=== PATIENT | female | born 1985 | race Caucasian/White ===

== ENCOUNTER 2019-01-06 22:27 | Emergency (ER) | payer SELFPAY ==
--- NOTE | 2019-01-06 22:49 | EDPHYS ---
Physician Documentation [facility] Name: Radha Maguire Age: 33 yrs Sex: Female : 1985 Arrival Date: 01/06/2019 Time: 22:29 Bed 28 Private MD: ED Physician Yandel Rodriguez HPI: 01/06 22:42 This 33 yrs old Female presents to ER via Unassigned with complaints of Foot cp Pain. 22:42 The patient presents with pain, that is chronic. The complaints affect the plantar cp surface of left foot. Context: resulted from stepped on kendrick tack, the patient can fully bear weight, the patient is able to ambulate. Onset: The symptoms/episode began/occurred 3 month(s) ago. Associated signs and symptoms: Pertinent negatives calf tenderness, fever, swelling, warmth. Historical: - Allergies: 22:55 No Known Allergies; ea - Home Meds: 22:55 None [Active]; ea - PMHx: 22:55 None; ea - PSHx: 22:55 None; ea - Immunization history:: Adult Immunizations up to date. - Social history:: Smoking status: Patient uses tobacco products, smokes one-half pack cigarettes per day. - Ebola Screening: : No symptoms or risks identified at this time. ROS: 22:43 Constitutional: Negative for body aches, chills, fever, poor PO intake. cp 22:43 Cardiovascular: Negative for chest pain, palpitations. 22:43 Respiratory: Negative for cough, shortness of breath, wheezing. 22:43 Abdomen/GI: Negative for abdominal pain, nausea, vomiting, and diarrhea. 22:43 Back: Negative for pain at rest, pain with movement. 22:43 MS/extremity: Positive for pain, of the plantar surface of left foot, Negative for deformity, paresthesias. 22:43 Skin: Negative for cellulitis. 22:43 All other systems are negative. Exam: 22:45 Constitutional: The patient appears in no acute distress, alert, awake, non-toxic, well cp developed, well nourished. 22:45 Musculoskeletal/extremity: Extremities: grossly normal except: noted in the plantar surface ball of foot: pain, tenderness, There is no evidence of swelling, erythema, Perfusion: the extremity is normally perfused throughout, Sensation intact. 22:45 Skin: cellulitis, is not appreciated. Vital Signs: 22:45 BP 127 / 60; Pulse 60; Resp 18; Temp 97.6; Pulse Ox 98% on R/A; Weight 63.5 kg; Height ea 5 ft. (152.40 cm); 22:45 Body Mass Index 27.34 (63.50 kg, 152.40 cm) ea MDM: 22:41 Patient medically screened. cp 22:47 Data reviewed: vital signs, nurses notes. cp Administered Medications: No medications were administered Disposition: 23:00 Chart complete. cp 01/07 02:59 Co-signature as Attending Physician, Yandel Rodriguez MD. pkl Disposition: 01/06/19 22:48 Discharged to Home as Medical Screen. Impression: Pain in left foot. - Condition is Stable. - Discharge Instructions: Foot Pain. - Medication Reconciliation Form, Thank You Letter, Antibiotic Education, Prescription Opioid Use form. - Follow up: Private Physician; When: 1 - 2 days; Reason: Recheck today's complaints. - Problem is chronic. - Symptoms are unchanged. Signatures: Yandel Rodriguez MD MD pkl Maynor Marinelli PA PA cp Antunez, Elena RN RN Corrections: (The following items were deleted from the chart) 01/06 22:58 22:48 01/06/2019 22:48 Discharged to Home as Medical Screen. Impression: Pain in left ea foot. Condition is Stable. Forms are Medication Reconciliation Form, Thank You Letter, Antibiotic Education, Prescription Opioid Use. Follow up: Private Physician; When: 1 - 2 days; Reason: Recheck today's complaints. Problem is chronic. Symptoms are unchanged. cp
--- NOTE | 2019-01-06 22:59 | ER ---
Nurse's Notes [facility] Name: Radha Maguire Age: 33 yrs Sex: Female : 1985 Arrival Date: 01/06/2019 Time: 22:29 Bed 28 Private MD: Diagnosis: Pain in left foot Presentation: 01/06 22:45 Presenting complaint: Patient states: Reports she stepped on a jhonny nail three months ea ago states left foot is still hurting. Pt reports her face is numb and it is hard to swallow. Transition of care: patient was not received from another setting of care. Onset of symptoms was January 06, 2019. Risk Assessment: Do you want to hurt yourself or someone else? Patient reports no desire to harm self or others. Initial Sepsis Screen: Does the patient meet any 2 criteria? No. Patient's initial sepsis screen is negative. Does the patient have a suspected source of infection? No. Patient's initial sepsis screen is negative. Care prior to arrival: None. 22:45 Method Of Arrival: Ambulatory ea 22:45 Acuity: PEPE 4 ea Historical: - Allergies: 22:55 No Known Allergies; ea - Home Meds: 22:55 None [Active]; ea - PMHx: 22:55 None; ea - PSHx: 22:55 None; ea - Immunization history:: Adult Immunizations up to date. - Social history:: Smoking status: Patient uses tobacco products, smokes one-half pack cigarettes per day. - Ebola Screening: : No symptoms or risks identified at this time. Screenin:53 Abuse screen: Denies threats or abuse. Nutritional screening: No deficits noted. ea Tuberculosis screening: No symptoms or risk factors identified. Fall Risk None identified. Assessment: 22:50 General: Appears in no apparent distress. Behavior is calm, cooperative, appropriate ea for age. Pain: Complains of pain in left foot. Neuro: Level of Consciousness is awake, alert, obeys commands, Oriented to person, place, time, situation. Respiratory: Airway is patent Respiratory effort is even, unlabored, Respiratory pattern is regular, symmetrical. Derm: Skin is pink, warm \T\ dry. Musculoskeletal: Circulation, motion, and sensation intact. 22:56 Reassessment: Patient and/or family updated on plan of care and expected duration. Pain ea level reassessed. Patient is alert, oriented x 3, equal unlabored respirations, skin warm/dry/pink. Pt declined radiology. Verbalized the understanding of seeking medical treatment if symptoms worsened. Pt med screened. Left ambulatory with significant other, tolerating well. Vital Signs: 22:45 BP 127 / 60; Pulse 60; Resp 18; Temp 97.6; Pulse Ox 98% on R/A; Weight 63.5 kg; Height ea 5 ft. (152.40 cm); 22:45 Body Mass Index 27.34 (63.50 kg, 152.40 cm) ea ED Course: 22:29 Patient arrived in ED. ds1 22:35 Maynor Marinelli PA is PHCP. cp 22:35 Yandel Rodriguez MD is Attending Physician. cp 22:44 Patient has correct armband on for positive identification. Bed in low position. Call ea light in reach. 22:45 Arm band placed on right wrist. Patient placed in an exam room, on a stretcher, on ea pulse oximetry. 22:50 Radha Johnson, RN is Primary Nurse. ea 22:53 Triage completed. ea 22:58 No provider procedures requiring assistance completed. Patient did not have IV access ea during this emergency room visit. Administered Medications: No medications were administered Outcome: 22:48 Discharge ordered by . cp 22:56 Medical screen evaluation completed per provider. Patient declined treatment. ea 22:56 Condition: stable 22:58 Patient left the ED. ea Signatures: Deana Schaffer ds1 Maynor Marinelli PA PA cp Antunez, Elena, RN RN ea
== END 2019-01-06 22:58 | disposition home or self-care (01) ==
LOC: ER 22:27
DX: M79.672 Pain in left foot (principal); F17.210 Nicotine dependence, cigarettes, uncomplicated

== ENCOUNTER 2021-04-20 09:03 | Emergency (ER) | payer SELFPAY ==
--- OUTSIDE RECORDS SUMMARY | 2021-04-20 09:05 | XMS REPORT | Continuity of Care Document ---
:1985 Author Organization [facility] t Address [address] [place] [address] Dr. Dahl [address] [place] [id number] Care Team Providers Name Role Phone NERET Attending Clinician Unavailable NERET Admitting Clinician Unavailable Payers Payer Name Policy Type Policy Number Effective Date Expiration Date S our[place] [id number] 2013 00:00:00 [place] Problems This patient has no known problems. Allergies, Adverse Reactions, Alerts This patient has no known allergies or adverse reactions. Medications This patient has no known medications. Procedures This patient has no known procedures. Encounters Start End Encounter Admission Attending Care Care Encounter Source Date/Time Date/Time Type Type Clinicians Facility Department ID 2020-04-05 2020-04-05 Outpatient [id number] [place] 02:44:00 02:44:00 [id number] Results This patient has no known results.
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
--- NOTE | 2021-04-20 09:17 | ER ---
Nurse's Notes [facility] Name: Radha Maguire Age: 35 yrs Sex: Female : 1985 Arrival Date: 04/20/2021 Time: 09:05 Bed 13 Private MD: Diagnosis: Cellulitis of finger Presentation: 04/20 09:13 Chief complaint: Patient states: Cut L hand 2nd digit on Thanksgiving. Pain, swelling ll1 for 4 days. + drainage when squeezing site, no fever. Coronavirus screen: Vaccine status: Patient reports being unvaccinated. Client denies travel out of the [place] in the last 14 days. At this time, the client does not indicate any symptoms associated with coronavirus-19. Ebola Screen: Patient denies travel to an Ebola-affected area in the 21 days before illness onset. Initial Sepsis Screen: Does the patient meet any 2 criteria? No. Patient's initial sepsis screen is negative. Does the patient have a suspected source of infection? Yes: Skin breakdown/wound. Risk Assessment: Do you want to hurt yourself or someone else? Patient reports no desire to harm self or others. Onset of symptoms was April 10, 2021. 09:13 Method Of Arrival: Ambulatory ll1 09:13 Acuity: PEPE 4 ll1 Triage Assessment: 09:15 General: Appears in no apparent distress. comfortable, Behavior is cooperative, bp appropriate for age, anxious. Pain: Complains of pain in dorsal aspect of middle phalanx of left index finger. EENT: No deficits noted. Neuro: No deficits noted. Cardiovascular: No deficits noted. Respiratory: No deficits noted. GI: No signs and/or symptoms were reported involving the gastrointestinal system. : No signs and/or symptoms were reported regarding the genitourinary system. Derm: No deficits noted. Musculoskeletal: No deficits noted. Injury Description: Laceration sustained to dorsal aspect of middle phalanx of left index finger is superficial, 0.5 to 2.5 cm long, not bleeding. Historical: - Allergies: 09:13 No Known Allergies; ll1 - PMHx: 09:13 None; ll1 - PSHx: 09:13 None; ll1 - Immunization history:: Client reports having NOT received the Covid vaccine. Last tetanus immunization: up to date. - Social history:: Smoking status: Patient reports the use of cigarette tobacco products, smokes two packs cigarettes per day. - Family history:: not pertinent. - Hospitalizations: : No recent hospitalization is reported. Screenin:15 Abuse screen: Denies threats or abuse. Denies injuries from another. Nutritional bp screening: No deficits noted. Tuberculosis screening: No symptoms or risk factors identified. Fall Risk None identified. Assessment: 09:15 General: SEE TRIAGE NOTE. bp 09:27 Reassessment: PT D/C HOME AMBULATORY, DX WITH CELLULITIS. bp Vital Signs: 09:13 BP 142 / 89; Pulse 82; Resp 17; Temp 98.1; Pulse Ox 100% ; Weight 72.57 kg; Height 5 ll1 ft. 0 in. (152.40 cm); Pain 6/10; 09:13 Body Mass Index 31.25 (72.57 kg, 152.40 cm) ll1 ED Course: 09:05 Patient arrived in ED. mr 09:05 Karan Lou MD is Attending Physician. rn 09:13 Arm band placed on Patient placed in an exam room, on a stretcher. ll1 09:15 Triage completed. ll1 09:15 Patient has correct armband on for positive identification. Bed in low position. Call bp light in reach. Side rails up X2. 09:15 Wound care: to laceration located on dorsal aspect of middle phalanx of left index bp finger was cleaned with Hibiclens, dressed with band aid, Patient tolerated well. 09:16 Micheal Brown, RN is Primary Nurse. bp 09:26 No provider procedures requiring assistance completed. Patient did not have IV access bp during this emergency room visit. Administered Medications: No medications were administered Outcome: 09:17 Discharge ordered by . rn 09:26 Discharged to home ambulatory. bp 09:26 Condition: stable 09:26 Discharge instructions given to patient, Instructed on discharge instructions, follow up and referral plans. medication usage, wound care, Demonstrated understanding of instructions, follow-up care, medications, wound care, Prescriptions given X 2. 09:28 Patient left the ED. bp Signatures: Devan Mona mr Karan Lou MD MD rn Peltier, Brian, RN RN bp Lewis, Lynsay, RN RN ll1
[2021-04-20 09:33] VITALS: BP 142/89; TEMP 98.1; O2SAT 100
== END 2021-04-20 09:28 | disposition home or self-care (01) ==
LOC: ER 09:03
DX: L03.012 Cellulitis of left finger (principal); F17.210 Nicotine dependence, cigarettes, uncomplicated
CPT/HCPCS: 99283

== ENCOUNTER 2024-09-04 12:53 | Emergency (ER) | payer BC, SELFPAY ==
--- OUTSIDE RECORDS SUMMARY | 2024-09-04 13:13 | XMS REPORT | Continuity of Care Document ---
Author Name Unknown Address [address] [facility] [address] [place] [address] Organization [facility] [place] Address [address] [facility] [place] [address] Care Team Providers Care Processing Spec Name Role Phone Carla Mohr Primary Care Physician [phone] RAMONE MORA Attending Clinician Unava ilriddhi Burt [facility] Attending Clinician Unava ilable Doctor Unassigned, [place] Attending Clinician U walter [facility] Attending Clinician Unavailable [facility] Attending Clinician Unavailable Ramone Cruz Attending Clinician + Jaswinder Felix CPhT Attending Clinician Unavaila Yoselyn Awan DNP Attending Clinician [phone] Doctor Unassigned, [place] Attending Clinician U MOIRA Go Attending Clinician Unavailable Moira Monroe MD Attending Clinician [phone] Jagdish Herbert MD Attending Clinician [phone] JAGDISH HERBERT Attending Clinician Unavailable [facility] Attending Clinician Unavailmichele braden Tomek_T Attending Clinician Unavailable GC_GCBZW_Nicole_S Attending Clinician Unavaila ANDRE Arevalo Attending Clinician Unavaila ANDRE Arevalo Attending Clinician Unavaila dio RIVERO Attending Clinician Unavailable NERET Attending Clinician Unavailable Tomek_T Admitting Clinician Unavailable GC_GCBZW_Kadiyala_S Admitting Clinician Unavaila ble DESAI_RAKESH Admitting Clinician Unavailable NERET Admitting Clinician Unavailable Payers Payer Name Policy Type Policy Number Effective Date Expirati on Date Source [place] [id number] 2022 00:00:00 2024 00:00:[place] [id number] Problems Condition Name Condition Details Condition Category Status Onset Date Resolution Date Last Treatment Date Treating Clinician Comments Source Hepatitis C antibody positive in blood Hepatitis C antibody positive in blood Disease Active 10-23 00:00: 00 [facility] BMI 33.0-33.9, adult BMI 33.0-33.9, adult Disease Active 06-25 00:00: 00 [facility] Nexplanon insertion Nexplanon insertion Disease Active 06-25 00:00: 00 [facility] UTI (urinary tract infection) UTI (urinary tract infection) Disease Active 09-13 00:00: 00 [facility] General counseling and advice for contracept xochitl management General counseling and advice for contracept xochitl management Disease Active 09-08 00:00: 00 Overview: Formattin g of this note might be different from the original. 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 Utility [facility] Need for Tdap vaccinatio n Need for Tdap vaccinatio n Disease Active 09-08 00:00: 00 [facility] Rubella immune Rubella immune Disease Active 09-08 00:00: 00 [facility] Breast feeding status of mother Breast feeding status of mother Disease Active 09-08 00:00: 00 [facility] Tobacco use disorder Tobacco use disorder Disease Active 09-08 00:00: 00 [facility] Urinary frequency Urinary frequency Disease Active 09-08 00:00: 00 [facility] Acute sinusitis Acute Sinusitis Problem Active [facility] Acute upper respirator y infection Acute Upper Respirator y Infection Problem Active [facility] Nummular eczema Nummular Eczema Problem Active [facility] Eruption Eruption Problem Active [facility] Cough Cough Problem Active [facility] Dysuria Dysuria Problem Active [facility] Allergies, Adverse Reactions, Alerts Allergy Name Allergy Type Status Severity Reaction(s) Onset Date Inactive Date Treating Clinician Comments Source NO KNOWN ALLERGIE S Drug Class Active [facility] Social History Social Habit Start Date Stop Date Quantity Comments Source History of tobacco use Chews Tobacco [facility] Alcoholic beverage intake 2024-03-08 00:00:00 2024-03-08 00:00:00 Current drinker of alcohol (finding) [facility] History of Social function 2023-10-21 00:00:00 2023-10-21 00:00:00 [facility] Exposure to SARS-CoV-2 (event) 2022-06-17 00:00:00 2022-06-27 09:41:00 Not sure [facility] Alcohol intake 2022-06-27 00:00:00 2022-06-27 00:00:00 Current drinker of alcohol (finding) [facility] Tobacco use and exposure 2022-06-25 00:00:00 2022-06-25 00:00:00 User of smokeless tobacco [facility] Cigarettes smoked current (pack per day) - Reported 2022-06-25 00:00:00 2022-06-25 00:00:00 [facility] Cigarette pack-years 2022-06-25 00:00:00 2022-06-25 00:00:00 [facility] Sex assigned at 1985 00:00:00 1985 00:00:00 [facility] Smoking Status Start Date Stop Date Source Heavy Tobacco Smoker [facility] Tobacco smoking consumption unknown [facility] Smokes tobacco daily 2022-06-25 00:00:00 [facility] Medications Ordered Medication Name Filled Medication Name Start Date Stop Date Current Medication? Ordering Clinician Indication Dosage Frequency Signature (SIG) Comments Components Source sofosbuvir- velpatasvir (EPCLUSA) 400-100 mg 2023-05 00:00: 00 Yes [id number] 1{tbl} Take 1 tablet by mouth in the morning. [facility] sofosbuvir- velpatasvir (EPCLUSA) 400-100 mg 02-10 00:00: 00 03-19 00:00 :00 No [id number] 1{tbl} Take 1 tablet by mouth in the morning. [facility] sofosbuvir- velpatasvir (EPCLUSA) 400-100 mg 02-05 00:00: 00 02-10 00:00 :00 No [id number] 1{tbl} Take 1 tablet by mouth in the morning. [facility] glecaprevir -pibrentasv ir 100-40 mg 02-02 00:00: 00 02-05 00:00 :00 No [id number] 3{tbl} Take 3 tablets by mouth in the morning. [facility] glecaprevir -pibrentasv ir 100-40 mg 01-28 00:00: 00 02-02 00:00 :00 No [id number] 3{tbl} Take 3 tablets by mouth in the morning for 56 days. [facility] albuterol 90 mcg/actuati on inhaler 01-04 10:56: 35 Yes INHALE 1 TO 2 PUFFS BY MOUTH EVERY 4 TO 6 HOURS NEEDED DIRECTED [facility] valACYclovi r 1 gram tablet 12-28 00:00: 00 02-08 00:00 :00 No TAKE 2 TABLETS BY MOUTH EVERY 12 HOURS FOR ONE DAY. [facility] acyclovir 200 mg capsule 11-06 00:00: 00 Yes [id number] 800mg Take 4 capsules by mouth 5 (five) times daily. [facility] predniSONE 10 mg tablet 11-06 00:00: 00 02-08 00:00 :00 No [id number] TAKE ONE TABLET DAILY FOR TONGUE SWELLING [facility] etonogestre L (NEXPLANON) 68 mg implant 12 15:24: 22 Yes 68mg 68 mg by Subdermal route once now. [facility] ACYCLOVIR ORAL 12 15:24: 22 Yes Take by mouth. [facility] etonogestre L (NEXPLANON) 68 mg implant 04 17:05: 50 Yes 68mg 68 mg by Subdermal route once now. [facility] ACYCLOVIR ORAL 10-20 17:05: 50 Yes Take by mouth. [facility] valacyclovi r 1 gram tablet 5-31 00:00: 00 Yes 1gram Nirav Gale TAKE 10 ML BY MOUTH EVERY 4 TO 6 HOURS NEEDED 2022-05 00:00: 00 Yes Nirav Gale TAKE 2 TABLETS BY MOUTH FOR 1 DAY THEN TAKE 1 TABLET BY MOUTH EVERY DAY FOR 4 DAYS 2022-05 00:00: 00 Yes Nirav Gale INHALE 1 TO 2 PUFFS BY MOUTH EVERY 4 TO 6 HOURS NEEDED DIRECTED 2022-05 00:00: 00 Yes Nirav Gale AMOXICILLIN 500MG 27 00:00: 00 Yes Nirav Gale TAKE 1 TABLET BY MOUTH THREE TIMES DAILY UNTIL ALL TAKEN 0 -26 00:00: 00 Yes Nirav Gale TAKE 1 CAPSULE BY MOUTH TWICE DAILY UNTIL ALL TAKEN 01-07 00:00: 00 Yes Nirav Gale TAKE 1 CAPSULE BY MOUTH EVERY DAY 16 00:00: 00 Yes Nirav Gale FLUTICASONE 50MCG RX SPR 8-16 00:00: 00 Yes [id number] Nirav Gale USE 2 SPRAYS IN EACH NOSTRIL TWICE DAILY -16 00:00: 00 Yes Nirav Gale USE A CAPFUL TO RINSE YOUR MOUTH TWICE DAILY AFTER BRUSHING TEETH -28 00:00: 00 Yes Nirav Gale AMPH/DEX (A) 10MG ER 3-23 00:00: 00 Yes Nirav Gale etonogestre L (NEXPLANON) implant 68 mg 2-09 17:15: 00 06-27 16:29 :00 No [id number] 68mg [facility] Flagyl 500 mg tablet 10-19 00:00: 00 Yes 1mg Nirav Gale phenazopyri dine 200 mg tablet 12-05 00:00: 00 Yes 200mg Take 1 tablet by mouth 3 (three) times daily. [facility] ondansetron (ZOFRAN ODT) 4 mg disintegrat ing tablet 12-05 00:00: 00 Yes 4mg Take 1 tablet by mouth every 8 (eight) hours as needed for Nausea and Vomiting (N/V). [facility] Strattera 25 mg capsule 11-17 00:00: 00 Yes 1mg Nirav Gale Adderall XR 10 mg capsule,ext ended release Take 1 capsule every day by oral route for 30 days. Adderall XR 10 mg capsule,ext ended release Take 1 capsule every day by oral route for 30 days. No 1capsul e(s) Q1D Adderall XR 10 mg capsule,ex tended release Take 1 capsule every day by oral route for 30 days. [facility] dextroamphe tamine-amph etamine ER 10 mg 24hr capsule,ext end release TAKE 1 CAPSULE BY MOUTH EVERY DAY dextroamphe tamine-amph etamine ER 10 mg 24hr capsule,ext end release TAKE 1 CAPSULE BY MOUTH EVERY DAY No dextroamph etamine-am phetamine ER 10 mg 24hr capsule,ex tend release TAKE 1 CAPSULE BY MOUTH EVERY DAY [facility] Adderall XR 10 mg capsule,ext ended release Take 1 capsule every day by oral route for 30 days. Adderall XR 10 mg capsule,ext ended release Take 1 capsule every day by oral route for 30 days. No 1capsul e(s) Q1D Adderall XR 10 mg capsule,ex tended release Take 1 capsule every day by oral route for 30 days. [facility] azelastine 137 mcg (0.1 %) nasal spray aerosol Surprise 2 sprays twice a day by intranasal route for 30 days. azelastine 137 mcg (0.1 %) nasal spray aerosol Surprise 2 sprays twice a day by intranasal route for 30 days. No 2spray( s) BID azelastine 137 mcg (0.1 %) nasal spray aerosol Surprise 2 sprays twice a day by intranasal route for 30 days. [facility] chlorhexidi ne gluconate 0.12 % mouthwash USE A CAPFUL TO RINSE YOUR MOUTH TWICE DAILY AFTER BRUSHING TEETH chlorhexidi ne gluconate 0.12 % mouthwash USE A CAPFUL TO RINSE YOUR MOUTH TWICE DAILY AFTER BRUSHING TEETH No chlorhexid ine gluconate 0.12 % mouthwash USE A CAPFUL TO RINSE YOUR MOUTH TWICE DAILY AFTER BRUSHING TEETH [facility] dextroamphe tamine-amph etamine ER 10 mg 24hr capsule,ext end release Take 1 capsule every day by oral route for 30 days. dextroamphe tamine-amph etamine ER 10 mg 24hr capsule,ext end release Take 1 capsule every day by oral route for 30 days. No 1capsul e(s) Q1D dextroamph etamine-am phetamine ER 10 mg 24hr capsule,ex tend release Take 1 capsule every day by oral route for 30 days. [facility] Flonase Allergy Relief 50 mcg/actuati on nasal spray,suspe nsion Surprise 1 spray every day by intranasal route for 30 days. Flonase Allergy Relief 50 mcg/actuati on nasal spray,suspe nsion Surprise 1 spray every day by intranasal route for 30 days. No 1spray( s) Q1D Flonase Allergy Relief 50 mcg/actuat ion nasal spray,susp ension Surprise 1 spray every day by intranasal route for 30 days. [facility] Immunizations Ordered Immunization Name Filled Immunization Name Date Status Comments Source TD, NOS 1999-05-19 00:00:00 Completed [facility] TD, NOS 1999-05-19 00:00:00 Completed [facility] TD, NOS 1999-05-19 00:00:00 Completed [facility] TD, NOS Unknown Completed [facility] TD, NOS Unknown Completed [facility] TD, NOS Unknown Completed [facility] TD, NOS Unknown Completed [facility] TD, NOS Unknown Completed [facility] TD, NOS Unknown Completed [facility] TD, NOS Unknown Completed [facility] TD, NOS Unknown Completed [facility] TD, NOS Unknown Completed [facility] TD, NOS Unknown Completed [facility] TD, NOS Unknown Completed [facility] Vital Signs Vital Name Observation Time Observation Value Comments S ource Systolic blood pressure 2024-03-08 14:25:00 109 mm[Hg] [facility] Diastolic blood pressure 2024-03-08 14:25:00 77 mm[Hg] [facility] Heart rate 2024-03-08 14:25:00 77 /min [facility] Body temperature 2024-03-08 14:25:00 36 Guillermina [facility] Respiratory rate 2024-03-08 14:25:00 18 /min [facility] Body height 2024-03-08 14:25:00 152.4 cm [facility] Body weight 2024-03-08 14:25:00 77.747 kg [facility] BMI 2024-03-08 14:25:00 33.47 kg/m2 [facility] Oxygen saturation in Arterial blood by Pulse oximetry 2024-03-08 14:25:00 99 /min [facility] Respiratory rate 2024-01-05 15:54:00 18 /min [facility] Body height 2024-01-05 15:54:00 152.4 cm [facility] Body weight 2024-01-05 15:54:00 77.429 kg [facility] BMI 2024-01-05 15:54:00 33.34 kg/m2 [facility] Oxygen saturation in Arterial blood by Pulse oximetry 2024-01-05 15:54:00 98 /min [facility] Systolic blood pressure 2024-01-05 15:54:00 128 mm[Hg] [facility] Diastolic blood pressure 2024-01-05 15:54:00 88 mm[Hg] [facility] Heart rate 2024-01-05 15:54:00 108 /min [facility] Body temperature 2024-01-05 15:54:00 36.06 Guillermina [facility] Systolic blood pressure 2023-11-08 00:31:00 129 mm[Hg] [facility] Diastolic blood pressure 2023-11-08 00:31:00 82 mm[Hg] [facility] Heart rate 2023-11-08 00:31:00 96 /min [facility] Body temperature 2023-11-08 00:31:00 37.22 Guillermina [facility] Respiratory rate 2023-11-08 00:31:00 18 /min [facility] Body height 2023-11-08 00:31:00 154.9 cm [facility] Body weight 2023-11-08 00:31:00 60.328 kg [facility] BMI 2023-11-08 00:31:00 25.13 kg/m2 [facility] Oxygen saturation in Arterial blood by Pulse oximetry 2023-11-08 00:31:00 100 /min [facility] Systolic blood pressure 2023-10-21 22:15:00 130 mm[Hg] [facility] Diastolic blood pressure 2023-10-21 22:15:00 89 mm[Hg] [facility] Heart rate 2023-10-21 21:50:00 100 /min [facility] Body temperature 2023-10-21 21:50:00 35.83 Guillermina [facility] Respiratory rate 2023-10-21 21:50:00 20 /min [facility] Body height 2023-10-21 21:50:00 152.4 cm [facility] Body weight 2023-10-21 21:50:00 75.921 kg [facility] BMI 2023-10-21 21:50:00 32.69 kg/m2 [facility] BP Systolic 2023-01-01 00:00:00 130 mm[Hg] [facility] BMI (Body Mass Index) 2023-01-01 00:00:00 31.6 kg/m2 [facility] Body Weight 2023-01-01 00:00:00 2592 [oz_av] [facility] Height 2023-01-01 00:00:00 60 [in_i] [facility] BP Diastolic 2023-01-01 00:00:00 88 mm[Hg] [facility] BP Diastolic 2022-08-08 00:00:00 90 mm[Hg] [facility] Height 2022-08-08 00:00:00 60 [in_i] [facility] BMI (Body Mass Index) 2022-08-08 00:00:00 34 kg/m2 [facility] BP Systolic 2022-08-08 00:00:00 125 mm[Hg] [facility] Body Weight 2022-08-08 00:00:00 2788 [oz_av] [facility] BP Diastolic 2022-07-15 00:00:00 82 mm[Hg] [facility] Height 2022-07-15 00:00:00 60 [in_i] [facility] BMI (Body Mass Index) 2022-07-15 00:00:00 33.2 kg/m2 [facility] BP Systolic 2022-07-15 00:00:00 124 mm[Hg] [facility] Body Weight 2022-07-15 00:00:00 2720 [oz_av] [facility] BP Diastolic 2022-06-28 00:00:00 77 mm[Hg] [facility] Height 2022-06-28 00:00:00 60 [in_i] [facility] BMI (Body Mass Index) 2022-06-28 00:00:00 33.2 kg/m2 [facility] BP Systolic 2022-06-28 00:00:00 117 mm[Hg] [facility] Body Weight 2022-06-28 00:00:00 2723 [oz_av] [facility] Systolic blood pressure 2022-06-27 16:09:00 125 mm[Hg] [facility] Diastolic blood pressure 2022-06-27 16:09:00 84 mm[Hg] [facility] Heart rate 2022-06-27 16:09:00 73 /min [facility] Respiratory rate 2022-06-27 16:09:00 18 /min [facility] Body height 2022-06-27 16:09:00 152.4 cm [facility] Body weight 2022-06-27 16:09:00 78.472 kg [facility] BMI 2022-06-27 16:09:00 33.79 kg/m2 [facility] Systolic blood pressure 2022-06-25 22:04:00 118 mm[Hg] [facility] Diastolic blood pressure 2022-06-25 22:04:00 78 mm[Hg] [facility] Heart rate 2022-06-25 22:04:00 72 /min [facility] Body temperature 2022-06-25 22:04:00 36.72 Guillermina [facility] Respiratory rate 2022-06-25 22:04:00 18 /min [facility] Body height 2022-06-25 22:04:00 152.4 cm [facility] Body weight 2022-06-25 22:04:00 78.472 kg [facility] BMI 2022-06-25 22:04:00 33.79 kg/m2 [facility] Respiratory Rate 2023-10-17 14:04:00 18.00 /min Nirav F Baljinder BP Systolic 2023-10-17 14:04:00 123 mm[Hg] Step hen F Baljinder BP Diastolic 2023-10-17 14:04:00 86 mm[Hg] Madan phen F Baljinder Weight Measured 2023-10-17 14:04:00 172.60 pounds Nirav F Baljinder Height Measured 2023-10-17 14:04:00 62.40 inches [facility]irav [facility] [place] Body Temperature 2023-10-17 14:04:00 98.10 degrees Nirav F Baljinder Heart Rate 2023-10-17 14:04:00 90.00 /min Maame en F Baljinder BP Systolic 2023-04-11 08:51:00 125 mm[Hg] Step hen F Baljinder BP Diastolic 2023-04-11 08:51:00 81 mm[Hg] Madan phen F Baljinder Weight Measured 2023-04-11 08:51:00 162.00 pounds Nirav F Baljinder Height Measured 2023-04-11 08:51:00 62.40 inches Nirav F Balj[facility] Body Temperature 2023-04-11 08:51:00 98.20 degrees Nirav F Baljinder Heart Rate 2023-04-11 08:51:00 93.00 /min Maame en F Baljinder Respiratory Rate 2023-04-11 08:51:00 18.00 /min Nirav F Baljinder BP Systolic 2020-11-03 09:27:00 117 mm[Hg] Step hen F Baljinder BP Diastolic 2020-11-03 09:27:00 77 mm[Hg] Madan phen F Baljinder Weight Measured 2020-11-03 09:27:00 160.20 pounds Nirav F Baljinder Height Measured 2020-11-03 09:27:00 62.40 inches Nirav F Baljinder Body Temperature 2020-11-03 09:27:00 98.00 degrees Nirav F Baljinder Heart Rate 2020-11-03 09:27:00 76.00 /min Maame en F Baljinder Respiratory Rate 2020-11-03 09:27:00 17.00 /min Nirav F Baljinder BP Systolic 2020-10-18 11:53:00 110 mm[Hg] Step hen F Baljinder BP Diastolic 2020-10-18 11:53:00 71 mm[Hg] Madan phen F Baljinder Weight Measured 2020-10-18 11:53:00 156.80 pounds Nirav F Baljinder Height Measured 2020-10-18 11:53:00 62.40 inches Nirav F Baljinder Body Temperature 2020-10-18 11:53:00 98.20 degrees Nirav F Baljinder Heart Rate 2020-10-18 11:53:00 81.00 /min Maame en F Baljinder Respiratory Rate 2020-10-18 11:53:00 17.00 /min Nirav F Baljinder BP Systolic 2017-12-08 11:42:00 128 mm[Hg] Step hen F Baljinder BP Diastolic 2017-12-08 11:42:00 92 mm[Hg] Madan phen F Baljinder Weight Measured 2017-12-08 11:42:00 135.20 pounds Nirav F Baljinder Height Measured 2017-12-08 11:42:00 60.00 inches Nirav F Baljinder Body Temperature 2017-12-08 11:42:00 98.10 degrees Nirav F Baljinder Heart Rate 2017-12-08 11:42:00 92.00 /min Maame en F Baljinder Respiratory Rate 2017-12-08 11:42:00 18.00 /min Nirav Gale BP Systolic 2017-11-17 10:52:00 103 mm[Hg] Mike Gale BP Diastolic 2017-11-17 10:52:00 76 mm[Hg] Madan Gale Weight Measured 2017-11-17 10:52:00 137.40 pounds Nirav Gale Height Measured 2017-11-17 10:52:00 60.00 inches Nirav Gale Body Temperature 2017-11-17 10:52:00 97.90 degrees Nirav Gale Heart Rate 2017-11-17 10:52:00 82.00 /min Maame en Robin Gale Respiratory Rate 2017-11-17 10:52:00 20.00 /min Nirav Gale Procedures Procedure Date / Time Performed Performing Clinician Source US ABDOMEN LIMITED WITH DOPPLER 2024-01-16 17:23:37 Ramone Mora [facility] URINE CULTURE 2023-10-21 22:33:00 Yoselyn Louis [facility] GC & CHLAMYDIA AMPLIFIED ASSAY 2023-10-21 22:33:00 Yoselyn Louis [facility] HIGH RISK HPV-THIN PREP 2023-10-21 22:33:00 Yoselyn Louis [facility] TRICHOMONAS AMPLIFIED ASSAY 2023-10-21 22:33:00 Yoselyn Louis [facility] PAP SMEAR-LIQUID BASED-CP 2023-10-21 22:33:00 Yoselyn Louis [facility] ASSIGNMENT OF BENEFITS 2022-06-25 21:18:56 Docto r Unassigned, Tetherow [facility] Encounters Start Date/Time End Date/Time Encounter Type Admission Type Attending Clinicians Care Facility Care Department Encounter ID Source 2024-03-22 00:00:00 2024-03-25 09:16:14 Patient Outreach Criselda Burt Marissa R [facility] [id number] [facility] 2024-02-13 00:00:00 2024-03-20 18:24:29 Patient Secure Msg Doctor Unassigned, [place]ethe[place] Doctor Unassigned, Tetherow [facility] [id number] [id number] [id number] [facility] 2024-03-18 00:00:00 2024-03-18 14:58:05 Telephone Jesusita [facility] [id number] [id number] [facility] 2024-03-08 12:30:00 2024-03-08 12:45:00 Front End Engineer Visit [facility] Ramone Mora [facility] [id number] [facility] 2024-03-08 09:00:00 2024-03-08 09:30:00 Office Visit Ramone Mora [facility] ([facility]) [id number] [id number] [id number] [id number] [facility] 2024-03-08 09:00:00 2024-03-08 09:00:00 Outpatient R RAMONE MORA [facility] [id number] [facility] 2024-02-13 00:00:00 2024-02-13 12:43:19 Specialty Pharmacy Jaswinder Felix Jason [facility] [id number] [id number] [id number] [facility] 2024-02-09 00:00:00 2024-02-09 08:46:19 Telephone Jesusita Milton Alana [facility] [id number] [id number] [id number] [facility] 2024-02-05 00:00:00 2024-02-05 10:53:46 Telephone Jaswinder Felix Jason [facility] [id number] [id number] [id number] [id number] [facility] 2024-01-29 00:00:00 2024-01-30 08:45:05 Telephone Ramone Mora [facility] ([facility]) [id number] [facility] 2024-01-16 11:25:41 2024-01-16 23:59:00 Outpatient RAMONE ROJO [facility] [id number] [facility] 2024-01-16 11:25:41 2024-01-16 23:59:00 Hospital Encounter Ramone Mora [facility] [id number] [facility] 2024-01-15 00:00:00 2024-01-15 00:00:00 Outpatient RAMONE ROJO [facility] [id number] [facility] 2024-01-05 14:15:00 2024-01-05 14:30:00 Front End Engineer Visit [facility] Ramone Mora [facility] 1.2.840.114 350.1.13.10 4.2.7.2.686 [id number] [facility] 2024-01-05 14:15:00 2024-01-05 14:15:00 Outpatient RAMONE ROJO [facility] [id number] [facility] 2024-01-05 10:30:00 2024-01-05 11:00:00 Office Visit Ramone Mora Love [facility] 1.20.114 350.1.13.10 4.2.7.2.686 [id number] [facility] 2023-10-22 00:00:00 2023-11-30 17:39:11 Telephone Yoselyn Louis [facility] 1..114 350.1.13.10 4.2.7.2.686 [id number] [facility] 2023-10-24 00:00:00 2023-11-29 18:22:49 Patient Secure Msg Doctor Unassigned, [place] [facility] 1.0.114 350.1.13.10 4.2.7.2.686 [id number] [facility] 2023-11-07 19:34:00 2023-11-07 20:52:00 Emergency X MOIRA MONROE [facility] ERT [id number] [facility] 2023-11-07 19:34:00 2023-11-07 20:52:00 Emergency Moira Monroe S [facility] 1..114 350.1.13.10 4.2.7.2.686 [id number] [facility] 2023-11-07 16:30:00 2023-11-07 16:30:00 Outpatient R YOSELYN [facility] [id number] [facility] 2023-11-07 00:00:00 2023-11-07 15:47:40 Telephone Yoselyn Louis [facility] 1.284.114 350.1.13.10 4.2.7.2.686 [id number] [facility] 2023-11-07 00:00:00 2023-11-07 14:39:20 Telephone Keon Jagdish [facility] 1.2.840.114 350.1.13.10 4.2.7.2.686 [id number] [facility] 2023-11-07 14:00:00 2023-11-07 14:00:00 Outpatient JAGDISH SALCEDO ELISHA [facility] [id number] [facility] 2023-10-22 00:00:00 2023-10-30 08:58:02 Letter (Out) ArjunYoselyn callahan [facility] 1.2.840.114 350.1.13.10 4.2.7.2.686 [id number] [facility] 2023-10-24 00:00:00 2023-10-24 12:56:54 Case Management ChidiYoselyn nava [facility] 1.2.840.114 350.1.13.10 4.2.7.2.686 [id number] [facility] 2023-10-22 11:30:00 2023-10-22 11:45:00 Front End Engineer Visit Pob, Adc Lab Main Yoselyn Louis [facility] 1.2.840.114 350.1.13.10 4.2.7.2.686 [id number] [facility] 2023-10-22 11:30:00 2023-10-22 11:30:00 Outpatient R YOSELYN [facility] [id number] [facility] 2023-10-22 11:30:00 2023-10-22 11:30:00 Outpatient R YOSELYN [facility] [id number] [facility] 2023-10-21 16:30:00 2023-10-21 17:34:03 Outpatient R YOSELYN [facility] [id number] [facility] 2023-10-21 16:30:00 2023-10-21 17:34:03 Office Visit Yoselyn Louis [facility] 1.2.840.114 350.1.13.10 4.2.7.2.686 [id number] [facility] 2023-10-21 16:30:00 2023-10-21 17:34:03 Outpatient R YOSELYN [facility] [id number] [facility] 2023-10-17 13:54:23 2023-10-17 13:54:23 Outpatient SFA [facility] [id number] Nirav Gale 2023-10-17 00:00:00 2023-10-17 00:00:00 Outpatient Visit [facility] [id number] Nirav Gale 2023-08-12 00:00:00 2023-08-12 00:00:00 Outpatient Tomek_T MMG MMG [id number] [facility] 2023-04-11 08:40:08 2023-04-11 08:40:08 Outpatient SFA [facility] [id number] Nirav Gale 2023-03-18 00:00:00 2023-03-18 00:00:00 Outpatient GC_GCBZW_Ka diyala_S PRIV PRIV [id number] [facility] 2023-03-17 00:00:00 2023-03-17 00:00:00 Outpatient GC_GCBZW_Ka diyala_S PRIV PRIV [id number] [facility] 2023-01-10 00:00:00 2023-01-10 00:00:00 Outpatient Tomek_T MMG MMG [id number] [facility] 2023-01-10 00:00:00 2023-01-10 00:00:00 Outpatient Tomek_T MMG MMG [id number] [facility] 2023-01-01 00:00:00 2023-01-01 00:00:00 Outpatient Tomek_T MMG [facility] [id number] [facility] 2023-01-01 00:00:00 2023-01-01 00:00:00 Rome Watkins MD: [address], [address], [place] [address] , Ph. MMG [facility] [id number] [facility] 2022-08-08 00:00:00 2022-08-08 00:00:00 Outpatient Tomek_T MMG [employer] [id number] [facility] 2022-08-08 00:00:00 2022-08-08 00:00:00 Rome Watkins MD: [address], [address], [place] [address] , Ph. MMG [facility] [id number] [facility] 2022-07-15 00:00:00 2022-07-15 00:00:00 Outpatient Tomek_T MMG [employer] [employer] [id number] [facility] 2022-07-15 00:00:00 2022-07-15 00:00:00 Rome Watkins MD: [address], [address], [place] [address] , Ph. MMG [facility] [id number] [facility] 2022-06-28 00:00:00 2022-06-28 00:00:00 Outpatient Tomek_T MMG [employer] [id number] [facility] 2022-06-28 00:00:00 2022-06-28 00:00:00 Rome Watkins MD: [address], [address], [place] [address] , Ph. MMG [facility] [id number] [facility] 2022-06-27 10:45:00 2022-06-27 10:45:00 [facility] 1.2.840.114 350.1.13.10 4.2.7.2.686 [id number] [facility] 2022-06-27 10:45:00 2022-06-27 10:08:55 Outpatient R ANDRE KIDD [facility] [id number] [facility] 2022-06-26 00:00:00 2022-06-26 00:00:00 Outpatient Tomek_T MMG [employer] [id number] [facility] 2022-06-25 15:30:00 2022-06-25 16:21:08 Outpatient R ANDRE KIDD [facility] [id number] [facility] 2022-06-25 15:30:00 2022-06-25 16:21:08 [facility] 1.2.840.114 350.1.13.10 4.2.7.2.686 [id number] [facility] 2022-06-25 00:00:00 2022-06-25 00:00:00 Orders Only Doctor Unassigned, Tetherow [facility] 1.2.840.114 350.1.13.10 4.2.7.2.686 [id number] [facility] 2022-05-09 00:00:00 2022-05-09 00:00:00 Outpatient DESAI_RAKES H [facility] [id number] [facility] 2021-09-26 10:47:00 2021-09-26 10:47:00 Outpatient DESAI_RAKES H [facility] [id number] [facility] 2020-04-05 02:44:00 2020-04-05 02:44:00 Outpatient [facility] [id number] [facility] 2020-04-05 00:00:00 2020-04-05 00:00:00 Outpatient [facility] [id number] [facility] Results Test Description Test Time Test Comments Results Resul t Comments Source US ABDOMEN LIMITED WITH DOPPLER 2023-12-20 0 18:14:17 EXAM: US ABDOMEN LIMITED WITH DOPPLER HISTORY: HCV infection COMPARISON: None FINDINGS: The gallbladder is contracted. No gallstones, gallbladder wall thickeningor pericholecystic fluid. The net front end developer reports a negative sonographicMurphy's sign. The common bile duct measures 2.4 mm. There is nointrahepatic biliary dilatation. The liver measures 16.1 cm in length and has a normal sonographicappearance . No focal hepatic lesion is seen. The spleen measures 9.7 cm inlength and has a normal sonographic appearance. There is normal hepatopedalflow in the main portal vein. Limited images of the pancreas and aorta demonstrate no gross abnormality. [facility] CT/NG, NAAT, [id number] 00:00:00* Test Item Value Reference Range Interpretation Comme nts CHLAMYDIA, NAAT, URINE (test code = 74112) NEGATIVE GONORRHEA, NAAT, URINE (test code = 08705) NEGATIVE Nirav Kelly BaljinderCT/NG, NAAT, [id number] 13:53:15* Test Item Value Reference Range Interpretation Comme nts CHLAMYDIA, NAAT, URINE (test code = 18511) NEGATIVE NEGATIVE Testing is perfo rmed with Godwin JESUS 6800/8800 systems usingreal-time polymerase chain reaction (PCR) method. A negative result does not exclude low level infection, specimensampling error, or collection error. GONORRHEA, NAAT, URINE (test code = 89189) NEGATIVE NEGATIVE Testing is perfo rmed with Godwin JESUS 6800/8800 systems usingreal-time polymerase chain reaction (PCR) method. A negative result does not exclude low level infection, specimensampling error, or collection error. CT/NG, TMA, [id number] 00:00:00* Test Item Value Reference Range Interpretation Comme nts CHLAMYDIA, NAAT, URINE (test code = 06380) NEGATIVE GONORRHEA, NAAT, URINE (test code = 25554) NEGATIVE Nirav [id number] 09:08:10* Test Item Value Reference Range Interpretation Comme nts RPR RESULT (test code = 3501) NON-REACTIVE NON-REACTIVE RPR TITER (test code = 3500) NOT INDIC. TITER NOT INDIC. [id number] 00:00:00* Test Item Value Reference Range Interpretation Comme nts RPR RESULT (test code = 3501) NON-REACTIVE RPR TITER (test code = 3500) NOT INDIC. TITER Nirav GaleVAGINAL PATHOGENS DNA [id number] 09:35:46* Test Item Value Reference Range Interpretation Comme nts OLIVIA SPECIES (test code = ) NEGATIVE NEGATIVE G. VAGINALIS (test code = 97836) NEGATIVE NEGATIVE T. VAGINALIS (test code = 49172) NEGATIVE NEGATIVE Note: The [employer] VPIII Microbial Identification Testis a DNA probe test intended for use in the detectionand identification of Olivia species, Gardnerellavaginalis and Trichomonas vaginalis nucleic acid. UNLESS OTHERWISE INDICATED, ALL TESTING PERFORMED AT [facility] [address] [place] [address] PEDIATRIC SURGEON: BELEN CALDERÓN M.D. CLIA NUMBER [id number] [facility] [place]. [id number] HIV 1/2 4TH GEN, RFLX [id number] 07:19:53* Test Item Value Reference Range Interpretation Comme nts HIV 1/2 4TH GEN, RFLX CONF ( test code = 3514) NON-REACTIVE NON-REACTIVE HIV 1/2 4TH GEN, RFLX [id number] 00:00:00* Test Item Value Reference Range Interpretation Comme nts HIV 1/2 4TH GEN, RFLX CONF ( test code = 3514) NON-REACTIVE Nirav GaleVAGINAL PATHOGENS DNA PANEL [ADDED]2023-04-12 00:00:00* Test Item Value Reference Range Interpretation Comme nts OLIVIA SPECIES (test code = 00667) NEGATIVE G. VAGINALIS (test code = 24377) NEGATIVE T. VAGINALIS (test code = 64653) NEGATIVE Nirav GaleGC AND CHLAMYDIA AMPLIFIED, [id number] 00:00:00* Test Item Value Reference Range Interpretation Comme nts GONORRHEA, TMA (test code = 44156) NEGATIVE CHLAMYDIA, TMA (test code = 74082) NEGATIVE Nirav GalePAP TEST, THINPREP, [id number] 00:00:00* Test Item Value Reference Range Interpretation Comme nts SOURCE: (test code = 8001) Cervical/Endocervical SLIDES: (test code = 8011) 1 LMP: (test code = 8021) 10/05/2020 SPECIMEN ADEQUACY: (test code = 67474) (NOTE) INTERPRETATION: (test code = 00526) NILM/NO EPITH. ABNORMALITY;SEE BELOW FUNDRAISING COORDINATOR: (test code = 8101) CHRISSY Josue(ASCP) LOCATION: (test code = 09517) (NOTE) CPT: (test code = 8140) (NOTE) Nirav Kelly [id number] 00:00:00* Test Item Value Reference Range Interpretation Comme nts RPR RESULT (test code = 3501) NON-REACTIVE RPR TITER (test code = 3500) NOT INDIC. TITER Nirav GaleHPV HIGH RISK WITH GENOTYPE, [id number] 00:00:00* Test Item Value Reference Range Interpretation Comme nts HPV HIGH RISK INTERP (test c ode = 71580) NEGATIVE HPV 16 (test code = 51287) NEGATIVE HPV 18 (test code = 86175) NEGATIVE HPV, HR, OTHER GENOTYPES (te st code = 16318) NEGATIVE Nirav GaleVAGINAL PATHOGENS DNA [id number] 00:00:00* Test Item Value Reference Range Interpretation Comme nts OLIVIA SPECIES (test code = 91732) NEGATIVE G. VAGINALIS (test code = 79198) POSITIVE T. VAGINALIS (test code = 87821) NEGATIVE Nirav Kelly BaljinderHIV AB/AG COMBO RFLX [id number] 00:00:00* Test Item Value Reference Range Interpretation Comme nts HIV 1/2 4TH GEN, RFLX CONF ( test code = 3514) NON-REACTIVE Nirav Kelly Baljinder Notes Date/Time Note Provider Source 2024-03-19 10:36:08 Addended by: JESUSITA MILTON RPH on: 03/19/2024 10:36 AM Modules accepted: Orders T [facility] 2024-03-18 14:56:47 Called patient to follow-up regarding insurance. No answer. Unable to LVM. Edit 03/19: Spoke with patient who confirmed with her job that insurance lapse 24 hrs after termination. Patient does not have insurance and unsure of how to obtain new insurance. Placed referral to social work. Sent new script for Epclusa to [facility] to enroll her in PAP. Informed her to be on the lookout for a text from [facility] to start application. She confirms understanding. Edit 03/24: Attempted to follow up with patient to remind her to send in income documents for PAP application. No answer, unable to leave VM. Edit 03/26: Attempted to follow up with patient to remind her to send in income documents for PAP application. No answer, unable to leave VM. Edit 03/31: Attempted to follow up with patient to remind her to send in income documents for PAP application. No answer, unable to leave VM. SA Milton [facility] 2024-03-08 12:30:00 Images from the original note were not included. Venipuncture collection performed by clean technique on the right anticubitus. Total of 1 attempts were made. Slight pressure and a bandage/dressing were applied to the site(s). The patient experienced no complications. The following specimens were processed according to instructions and sent to [facility] laboratories per lab order on 03/08/2024 : LT BLUE SST 1 RED LAV 1 PPT 1 DK GREEN (LiHep) DK GREEN (SodH) HERNANDES DK BLUE (K2) DK BLUE (S) ACD Blood Culture NIPT/NTD [facility] 2024-02-11 10:22:13 Addended by: JESUSITA MILTON RPH on: 02/11/2024 10:22 AM Modules accepted: Orders T Jesusita Milton [facility] 2024-02-09 08:43:21 Initial Assessment: Hepatitis C Virus Treatment DATE: 02/09/24 Emilee Guevara is a 38 year old y/o /White female referred to PharmD by Ramone Mora NP for medication management. Summary of Visit Ms. Guevara is doing well today. Counseled on Epclusa. Patient is HCV positive, treatment naive, genotype 1A, and non-cirrhotic. HBV/HIV negative. Fibrometer score F1. Viral load 89,161 on 01/05/24. No drug-drug interactions identified. Pending insurance approval to determine preferred pharmacy. Edit 02/23: Insurance mandated prescription to [facility], provided info to patient on 02/12 via [employer] (unread as of 02/23). Attempted to follow-up with patient to verify if she has received/started therapy. No answer, unable to leave voicemail. Patient returned call. Emailed her info on how to obtain medication. Edit 03/04: Spoke with patient on 03/03, states she still hasn't received therapy. Patient expresses extreme frustration with [facility]. Spoke with Tia from [facility] today. States that patient placed order for Epclusa on 02/26 and [facility] ([address], [place], [place]) today. Asked for tracking number ([id number]). Provided information to patient. Asked her to call back if any issues or when she starts therapy. Edit 03/08: Spoke with patient who states that when [facility] called [facility] they state they do not have package. Per UPS tracking, package was delivered on 03/04. Called [facility] on [address] and confirmed they had prescription for patient. Patient was on the way to appointment with Ramone, so informed Ramone of status. Edit 03/11: Verified start date. Pt notes recently laid off so inquiring about coverage for the remaining treatment. Asked her to verify when the end of her insurance coverage is and inform clinical pharmacist, as that will guide next steps. She confirms understanding. Start date: 03/08/24 Anticipated end date: 05/30/24 Indication / Regimen The regimen of Epclusa 1 tablet(s) by mouth once daily for 12 weeks is appropriate for Emilee Guevara who has hepatitis C, genotype 1a, is treatment naive and non-cirrhotic. No renal or hepatic adjustments are required for this hepatitis C regimen. At this time there is no planned dose titration. The patient has the ability to self-administer medication Therapeutic Goal: Achieve sustained virologic response (SVR) following completion of HCV therapy. The HCV PCR lab should be drawn 12 weeks after completion of HCV therapy. Baseline characteristics: Liver Staging: The patient's hepatic fibrosis staging was assessed. The most recent assessment was 01/05/24 which showed fibrometer score of F1 (mild/minimal scarring). Past Medical History: Past Medical History: Diagnosis Date ADHD Herpes simplex type 1 infection STD (sexually transmitted disease) Labs and Diagnostic tests: WBC x10 3 (/uL) Date Value 09/08/2013 11.4 (H) WBC (10*3/?L) Date Value 01/05/2024 10.31 RBC x10 6 (/uL) Date Value 09/08/2013 4.60 RBC (10*6/?L) Date Value 01/05/2024 5.06 HGB Date Value 01/05/2024 15.5 g/dL (H) 09/08/2013 13.0 G/DL HCT (%) Date Value 01/05/2024 47.4 (H) 09/08/2013 40.8 NA (mmol/L) Date Value 01/05/2024 140 K (mmol/L) Date Value 01/05/2024 3.8 CL (mmol/L) Date Value 01/05/2024 105 BUN (mg/dL) Date Value 01/05/2024 6 (L) CREATININE (mg/dL) Date Value 01/05/2024 0.68 TOTAL BILI (mg/dL) Date Value 01/05/2024 0.5 BILI CONJ (mg/dL) Date Value 01/05/2024 0.0 BILI UNCON (mg/dL) Date Value 01/05/2024 0.1 T PROTEIN (g/dL) Date Value 01/05/2024 8.5 (H) ALBUMIN (g/dL) Date Value 01/05/2024 5.0 ALK PHOS (U/L) Date Value 01/05/2024 60 ALTv (U/L) Date Value 01/05/2024 40 (H) AST(SGOT) (U/L) Date Value 01/05/2024 39 Hepatitis C: Genotype: 1A Treatment status: naive Fibrosis score: F1 Hep C VL: 89,161 (01/05/24) Hepatitis B screening: HBsAg (no units) Date Value 10/22/2023 Negative HBsAg Semi-Quantitative (no units) Date Value 10/22/2023 0.11 No results found for: "HBA" HIV Screening HIV 1/2 Ag-Ab with Reflex (no units) Date Value 10/22/2023 Negative Weight: Wt Readings from Last 1 Encounters: 01/05/24 77.4 kg (170 lb 11.2 oz) Allergies: No Known Allergies Immunizations: Immunization History Administered Date(s) Administered TD, NOS 05/19/1999 Vaccination history was reviewed. The patient will be reminded about the importance of completing hepatitis B vaccination if not immune and receiving an annual influenza vaccine as indicated. Medication Reconciliation: Medication reconciliation is based on the patient's most recent med list in the electronic medical record (EMR) including herbal products and OTC medications. The patients' medication list will be updated during patient education, after speaking with the patient and prior to dispensing the medication. Prior to Admission medications Medication Sig Start Date End Date Taking? Authorizing Provider sofosbuvir-velpatasvir (EPCLUSA) 400-100 mg Take 1 tablet by mouth in the morning. 02/06/24 Ramone Mora FNP albuterol 90 mcg/actuation inhaler INHALE 1 TO 2 PUFFS BY MOUTH EVERY 4 TO 6 HOURS NEEDED DIRECTED Doctor Unassigned, [place] acyclovir 200 mg capsule Take 4 capsules by mouth 5 (five) times daily. 11/07/23 Moira Monroe MD dextroamphetamine/amphetamine (ADDERALL ORAL) Take by mouth. Doctor Unassigned, [place] etonogestreL (NEXPLANON) 68 mg implant 68 mg by Subdermal route once now. Doctor Unassigned, [place] ondansetron (ZOFRAN ODT) 4 mg disintegrating tablet Take 1 tablet by mouth every 8 (eight) hours as needed for Nausea and Vomiting (N/V). 12/05/17 Jae Elizabeth III, PA phenazopyridine 200 mg tablet Take 1 tablet by mouth 3 (three) times daily. 12/05/17 Jae Elizabeth III, PA Drug Interactions: There are no significant drug-drug interactions Drug-Food Interactions There are no significant drug-food interactions. This medication should be taken with or without food. Safety Precautions: Hepatitis B reactivation risk: low status: female - of childbearing potential (not currently ) No components found for: "HCG" Risk Evaluation and Mitigation Strategy (REMS) Assessment: No REMS is required for this medication. Contraindications: Emilee Guevara has no contraindications to this medication. Follow up Plan: Initial therapy assessment has been completed and the patient will be contacted and educated on their regimen. Following education the patient will be reassessed 1 month after starting therapy. Jesusita Milton PharmD Clinical Pharmacist - GI/Hepatology [phone] Jesusita Milton [facility] 2024-02-09 08:35:27 Patient Education: Hepatitis C Therapy DATE: 02/09/24 Emilee Guevara is a 38 year old y/o /White female referred to PharmD by Ramone Mora NP for medication counseling. Regimen: I spoke with Emilee Guevara today to notify them that Epclusa for 12 weeks has been approved via insurance, and they are ready to begin therapy for hepatitis C. Medication Administration: Emilee Guevara was educated to take Epclusa. The patient was counseled on the medication name (brand and generic), dose, route, frequency, duration, medication class, and indication. The patient was educated on common side effects including fatigue and headache. The patient was instructed that they can take acetaminophen for a headache, no more than 2,000 mg per 24 hours. The patient was instructed to take the medication at the same time every day. The patient was educated not to miss any doses, interrupt therapy and/or stop taking the medication without talking to the hepatology team. The importance of adherence was discussed. The patient's ability to be adherent with the treatment plan was discussed and the patient was provided with tools and resources to promote adherence to therapy. The patient's ability to self-administer medication was assessed. Appropriate safe handling, storage and disposal directions were reviewed with the patient. Safety Precautions: Contraindications: Emilee Guevara has no contraindications to this medication. The patient was instructed to seek medical attention immediately if they experience signs of an allergic reaction, including but not limited to: a rash; hives; itching; red, swollen, blistered, or peeling skin with or without fever. status was assessed and determined to be: female - of childbearing potential (not currently ). Medication Reconciliation: A medication history and reconciliation were performed (including prescription medications, supplements, over the counter, and herbal products). The medication list was updated and the patients' current medication list is included below. Prior to Admission medications Medication Sig Start Date End Date Taking? Authorizing Provider sofosbuvir-velpatasvir (EPCLUSA) 400-100 mg Take 1 tablet by mouth in the morning. 02/06/24 Ramone Mora FNP albuterol 90 mcg/actuation inhaler INHALE 1 TO 2 PUFFS BY MOUTH EVERY 4 TO 6 HOURS NEEDED DIRECTED Doctor Unassigned, [place] acyclovir 200 mg capsule Take 4 capsules by mouth 5 (five) times daily. 11/07/23 Moira Monroe MD dextroamphetamine/amphetamine (ADDERALL ORAL) Take by mouth. Doctor Unassigned, [place] etonogestreL (NEXPLANON) 68 mg implant 68 mg by Subdermal route once now. Doctor Unassigned, [place] ondansetron (ZOFRAN ODT) 4 mg disintegrating tablet Take 1 tablet by mouth every 8 (eight) hours as needed for Nausea and Vomiting (N/V). 12/05/17 Jae Elizabeth III, PA phenazopyridine 200 mg tablet Take 1 tablet by mouth 3 (three) times daily. 12/05/17 Jae Elizabeth III, PA The patient was instructed to speak with their health care provider before starting any new drug, including prescription or over the counter, natural / herbal products, or vitamins. The patient was educated not to start any antacids while on hepatitis C treatment including omeprazole, famotidine, magnesium, and calcium containing agents before consulting with biomedical electronics technician or hepatology clinical pharmacist. Drug-drug and drug-food interactions with the new therapy were assessed and reviewed with the patient. Appropriate recommended vaccinations were reviewed and discussed with the patient. Pharmacy Information: The patient was notified that their medication will be filled at [facility]. The patient was instructed to notify their clinic nurse coordinator by phone at [phone] when they receive their medication to coordinate a start date. The patient was educated on the refill process. Follow Up: The monitoring and follow-up plan was discussed with the patient. The patient was instructed to contact their health care provider if their symptoms or health problems do not get better or if they become worse. Emilee Guevara denies having any questions at this time. The patient was encouraged to call the hepatology pharmacist at [phone] with any questions. The patient will be contacted within 21 days after initiation of therapy for a complete medication assessment. Jesusita Milton PharmD Clinical Pharmacist - GI/Hepatology [phone] [facility] 2024-02-06 10:35:59 Addended by: RAMONE CRUZ on: 02/06/2024 10:35 AM Modules accepted: Orders [facility] 2024-02-06 10:26:14 HCV infection Assessment: Diagnosis: HCV, dx 10/22/2023 Viral load: 355,130 Genotype: 1A Transmission: Unclear? Possible blood transfusion in the 80s? History of treatment: Treatment naive Liver fibrosis stage: Metavir class F1 Renal function: Stable Coinfection: -HIV: negative -HBV coinfection: negative History of liver disease/decompensation: No ascites, jaundice, change in his mentation, or GI bleedingiver disease/decompensation: No ascites, jaundice, change in his mentation, or GI bleeding Plan: -Will DC mavyret and order epclusa x 12 weeks per insurance preference -Will refer to [facility] pharmacist for medication review and DDI assessment - An in-person or telehealth/phone visit may be scheduled, if needed, for patient support, assessment of symptoms, and/or new medications. -Contact the GI clinic when you have received the medications. We will need to document the start date and end date of treatment Patient is to have the following labs/clinic appointments: Lab appointment at 4 weeks after initiating treatment to check HCV RNA, CBC, CMP Clinic visit and labs to check CBC,CMP, and HCV PCR at end of treatment Clinic visit and labs to check CBC, CMP, and HCV PCR at 12 weeks after end of treatment Signed: Ramone LUX-C Department of Internal Medicine - Gastroenterology and Hepatology [facility] 2024-02-05 10:52:17 Devorah, the prior authoirzation has been denied for the following medication: Drug: Mavyret Insurance: [employer] [place]#: [id number] CoverMyMeds [place]: [id number] Denial Reason: "The preferred drugs for your plan are: A) brand name Epclusa, B), brand name Harvoni, and C) Vosevi. Your doctor may need to get approval from your plan for preferred drugs." If there are any further questions, please reach out to me. Thank you. T Jaswinder Felix [facility] 2024-02-03 09:27:06 Addended by: JESUSITA MILTON RPH on: 02/03/2024 09:27 AM Modules accepted: Orders T Jesusita Milton [facility] 2024-02-03 09:23:22 Resent Mavyret rx to [facility] for benefits investigation T [facility] 2024-01-30 08:22:34 8:05am. Tried reaching patient, the call is not going thru. Sent patient a [employer] message. T Lety Snyder RN [facility] 2024-01-29 17:00:57 Tried reaching patient, no answer. The phone did not ring for awhile, reads on the screen that the phone line is experiencing signal delays. Call can not be competed at this time and to try your call again later. [facility] 2024-01-29 14:58:07 HCV is positive and shows viral load 89,161 genotype 1A. Fibrosis is F1 and ultrasound negative for any concerning lesions. Will likely be able to start HCV treatment prior to February appointment if insurance approval. Can do Mavyret 8 weeks. Will send to pharmacy for approval. [facility] 2024-01-29 09:09:53 Ramone, Please advise on 01/04 lab/test results and your recommendations regarding treatment and patient's message below. Thank you T [facility] 2024-01-29 08:56:24 Emilee Guevara is a 38 year old female Pt is calling to speak with a nurse to clarify if Antiviral medication will be given before appt in February and retesting, Please advise (home) T Carmita Felix [facility] 2024-01-05 14:15:00 Images from the original note were not included. Venipuncture collection performed by clean technique on the left anticubitus and left hand. Total of 3 attempts were made. Slight pressure and a bandage/dressing were applied to the site(s). The patient experienced no complications. The following specimens were processed according to instructions and sent to [facility] laboratories per lab order on 01/05/2024 : Santana Reynoso fabian after third attempt. LT BLUE 1 SST 2 RED LAV 2 PPT 2 DK GREEN (LiHep) DK GREEN (SodH) HERNANDES DK BLUE (K2) DK BLUE (S) ACD Blood Culture NIPT/NTD [facility] 2023-11-30 17:38:53 This encounter has been open longer than 72 hrs and has no recent documentation attached. Encounter closed. Brittani Frederick RN Access Center Brittani Frederick RN [facility] 2023-11-07 20:52:07 Pt not in lobby, left prior to discharge paperwork Lashaun Delong RN [facility] 2023-11-07 19:27:08 Pt arrived ambulatory without assist. 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 Pt was seen at [facility] and was prescribed Valacyclovir for HSV 2. No itching. No choking sensation. No rash. No SOB/Dyspnea.. No wheezing. Pt reports that in the past she had taken Acyclovir without any difficulties or allergic reaction and wants to be prescribed same History provided by: Patient and medical records phone representative used: No Allergic reaction Presenting symptoms: swelling Presenting symptoms: no difficulty breathing, no difficulty swallowing, no itching, no rash and no wheezing Severity: Mild Duration: 2 days Prior allergic episodes: No prior episodes Context: medications Context: not animal exposure, not chemicals, not cosmetics, not dairy/milk products, not eggs, not food allergies, not grass, not insect bite/sting, not jewelry/metal, not new detergents/soaps, not nuts and not poison curtis Relieved by: None tried Worsened by: Nothing Ineffective treatments: None tried Past Medical History/Immunizations: Past Medical History: Diagnosis Date ADHD Herpes simplex type 1 infection STD (sexually transmitted disease) Hep C newly diagnosed Tetanus received in last 5 years: No Allergies: No Known Allergies Past Social History: Tobacco Use Every Day; 2.0 packs/day; Smoked an average of 2.0 packs/day for 16.0 years; Types: Cigarettes Smokeless Tobacco: Current user of smokeless tobacco; Types: Chew. Vaping Use Every day; Substances: Nicotine, Flavoring; Devices: Disposable, Pre-filled or refillable cartridge, Refillable tank, Pre-filled pod Alcohol Use Yes. Drug Use Never. Sexual Activity Sexually active; Partners: Female, Male; Control/Protection: Condom, None. Comments: last had sex 09/19/2013 with a condom Past Surgical History: Past Surgical History: Procedure Laterality Date SECTION 06/01/2013 ENDOSCOPIC CARPAL TUNNEL RELEASE TENDON REPAIR Left Review of Systems: Review of Systems Constitutional: Negative. HENT: Negative. Negative for drooling, mouth sores, sore throat, trouble swallowing and voice change. Eyes: Negative. Respiratory: Negative. Negative for wheezing. Breasts: Negative. Cardiovascular: Negative. Gastrointestinal: Negative. Genitourinary: Negative. Musculoskeletal: Negative. Skin: Negative. Negative for itching and rash. Neurological: Negative. Psychiatric/Behavioral: Negative. All other systems reviewed and are negative. Endocrine: Endocrine negative Physical Exam: ED Triage Vitals [11/07/231930] Weight 60.3 kg (133 lb) Actual or estimated Estimated by patient/family report Height 1.549 m (5' 1") BP 129/82 Pulse 96 Resp 18 Temp 37.2 ?C (99 ?F) Temp source Oral SpO2 100 % Measured on Room air Physical Exam Vitals and nursing note reviewed. Constitutional: General: She is not in acute distress. Appearance: Normal appearance. She is well-developed and normal weight. She is not ill-appearing or toxic-appearing. HENT: Head: Normocephalic and atraumatic. Nose: Nose normal. Mouth/Throat: Mouth: Mucous membranes are moist. Pharynx: Oropharynx is clear. No oropharyngeal exudate or posterior oropharyngeal erythema. Comments: Tongue with mild erythema, mild swelling Eyes: General: No scleral icterus. Right eye: No discharge. Left eye: No discharge. Extraocular Movements: Extraocular movements intact. Conjunctiva/sclera: Conjunctivae normal. Pupils: Pupils are equal, round, and reactive to light. Neck: Thyroid: No thyromegaly. Cardiovascular: Rate and Rhythm: Normal rate and regular rhythm. Pulses: Normal pulses. Heart sounds: Normal heart sounds. No murmur heard. Pulmonary: Effort: Pulmonary effort is normal. No respiratory distress. Breath sounds: Normal breath sounds. No stridor. No wheezing, rhonchi or rales. Chest: Chest wall: No tenderness. Abdominal: General: Bowel sounds are normal. There is no distension. Palpations: Abdomen is soft. There is no mass. Tenderness: There is no abdominal tenderness. There is no right CVA tenderness, left CVA tenderness, guarding or rebound. Musculoskeletal: General: No swelling, tenderness, deformity or signs of injury. Normal range of motion. Cervical back: Normal range of motion and neck supple. No rigidity or tenderness. Lymphadenopathy: Cervical: No cervical adenopathy. Skin: General: Skin is warm and dry. Capillary Refill: Capillary refill takes less than 2 seconds. Coloration: Skin is not jaundiced or pale. Findings: No bruising, erythema, lesion or rash. Neurological: General: No focal deficit present. Mental Status: She is alert and oriented to person, place, and time. Cranial Nerves: No cranial nerve deficit. Sensory: No sensory deficit. Motor: No weakness or abnormal muscle tone. Coordination: Coordination normal. Gait: Gait normal. Psychiatric: Behavior: Behavior normal. Thought Content: Thought content normal. Judgment: Judgment normal. Comments: Anxious Mood Radiology: No orders to display Lab Results: Lab Results - No data to display Orders and Treatments: No orders of the defined types were placed in this encounter. Orders Placed This Encounter Medications acyclovir 200 mg capsule predniSONE 10 mg tablet First Provider Eval: ED Events Date/Time Event User Comments 11/07/231934 Medical Screening Begins MOIRA MONROE MD -- 11/07/231934 First Provider Evaluation MOIRA MONROE MD -- ED COURSE Diagnosis/Impression as of 11/07/232049 Mild tongue swelling Procedures: Procedures MDM: Medical Decision Making Emilee Guevara is a 38 year old female who presents to the ED for evaluation of possible allergic reaction to Valacyclovir and requesting prescription for Acyclovir which she has successfully used in the past for her HSV2 without any reactions Problems Addressed: Mild tongue swelling: acute illness or injury Details: Etiology uncertain, but may be related to Vanacyclovir. No other allergens identified Amount and/or Complexity of Data Reviewed External Data Reviewed: notes. Risk OTC drugs. Prescription drug management. Flowsheet Documentation: Scoring Tools: No data recorded Disposition/Condition: ED Disposition ED Disposition Disch - Home Condition Stable Comment -- Discharge Medications: Patient's Medications START taking these medications ACYCLOVIR 200 MG CAPSULE Take 4 capsules by mouth 5 (five) times daily. PREDNISONE 10 MG TABLET TAKE ONE TABLET DAILY FOR TONGUE SWELLING CONTINUE taking these medications which have NOT CHANGED ACYCLOVIR ORAL Take by mouth. DEXTROAMPHETAMINE/AMPHETAMINE (ADDERALL ORAL) Take by mouth. ETONOGESTREL (NEXPLANON) 68 MG IMPLANT 68 mg by Subdermal route once now. ONDANSETRON (ZOFRAN ODT) 4 MG DISINTEGRATING TABLET Take 1 tablet by mouth every 8 (eight) hours as needed for Nausea and Vomiting (N/V). PHENAZOPYRIDINE 200 MG TABLET Take 1 tablet by mouth 3 (three) times daily. START taking Modified Medications as Prescribed No medications on file STOP taking these medications No medications on file Follow-up: Contact information for follow-up Marianne Kerr FNP Specialty: CAGER OPERATOR-FAMILY Relationship: PCP - General [facility] [address] [place] [address] Electronically signed by: Moira Monroe MD 11/07/232049 [facility] 2023-11-07 16:01:23 Pt called. Pt wanted to know what we would do if she came to office. I explained to pt that if she did not have a sore, we will not be able to swab. She also stated that she has been taken Acyclovir and it has not gotten better (tongue). Explained that she can either go to UC or PCP so they may evaluate her to make sure it is not something else. If she did not have a PCP, we can help her schedule an appt. Pt refused appt. Pt hung up phone. KAVITA COOPER RN 11/07/2023 4:03 PM Kavita Cooper RN [facility] 2023-11-07 15:43:51 Patient called wanting an appointment with Yoselyn Louis regarding her "swollen tongue". Patient states she has been to the ER multiple times and is told it is herpes and given acyclovir. Patient states she does not have sores or pain. Patient advised she needs to be seen in UC or ER for swollen tongue. Patient states she thought she needed follow up with us. Patient advised a referral was placed for hepatology and an appointment is scheduled. Patient advised she needs to be seen at this appointment. Appointment with Yoselyn Louis cancelled. Aman Garcia RN 11/07/2023 3:47 PM Aman Garcia RN [facility] 2023-11-07 14:39:12 Attempted to contact patient. "Call unable to be completed at this time" Aman Garcia RN [facility] 2023-11-07 11:57:25 Attempted to contact patient. "Call unable to be completed at this time" Aman Garcia RN 11/07/2023 11:57 AM [facility] 2023-11-07 10:32:45 Pt. Walked in requesting stronger medication. Mariel Mcnally [facility] 2023-10-22 11:30:00 Images from the original note were not included. Venipuncture collection performed by clean technique on the left anticubitus. Total of 1 attempts were made. Slight pressure and a bandage/dressing were applied to the site(s). The patient experienced no complications. The following specimens were processed according to instructions and sent to [facility] laboratories per lab order on 10/22/2023: LT BLUE SST 3 RED 1 LAV PPT DK GREEN (LiHep) DK GREEN (SodH) HERNANDES DK BLUE (K2) DK BLUE (S) ACD Blood Culture NIPT/NTD [facility]
--- NOTE | 2024-09-04 13:45 | EDPHYS ---
Physician Documentation [facility] Name: Radha Maguire Age: 39 yrs Sex: Female : 1985 Arrival Date: 09/04/2024 Time: 12:53 Bed IW5 Private MD: ED Physician Maynor Cristobal HPI: 09/04 13:41 This 39 yrs old Female presents to ER via Unassigned with complaints of Skin chioma Problem. 13:41 The patient's rash thought to be caused by Dermatitis. The rash is located on the face. chioma The rash can be described as none. Associated signs and symptoms: Pertinent positives: None. Pertinent negatives: None. Severity of symptoms: At their worst the symptoms were very mild. Treatment given at home: none. The patient has not experienced similar symptoms in the past. Historical: - Allergies: 13:48 No Known Allergies; ld1 - PMHx: 13:48 Hepatitis C; HSV (Tonsillectomy); ld1 - PSHx: 13:48 left arm; Tonsillectomy; ld1 - Immunization history:: Adult Immunizations up to date. - Infectious Disease History:: Denies. - Family history:: not pertinent. - Social history:: Smoking status: Patient denies any tobacco usage or history of. ROS: 13:43 Constitutional: Negative for fever, chills, and weight loss, Eyes: Negative for injury, chioma pain, redness, and discharge, ENT: Negative for injury, pain, and discharge, Neck: Negative for injury, pain, and swelling, Cardiovascular: Negative for chest pain, palpitations, and edema, Respiratory: Negative for shortness of breath, cough, wheezing, and pleuritic chest pain, Abdomen/GI: Negative for abdominal pain, nausea, vomiting, diarrhea, and constipation, Back: Negative for injury and pain, : Negative for injury, bleeding, discharge, and swelling, MS/Extremity: Negative for injury and deformity, Skin: Negative for injury, rash, and discoloration, Neuro: Negative for headache, weakness, numbness, tingling, and seizure, Psych: Negative for depression, anxiety, suicide ideation, homicidal ideation, and hallucinations, Allergy/Immunology: Negative for hives, rash, and allergies, Endocrine: Negative for neck swelling, polydipsia, polyuria, polyphagia, and marked weight changes, Hematologic/Lymphatic: Negative for swollen nodes, abnormal bleeding, and unusual bruising, Exam: 13:43 Constitutional: This is a well developed, well nourished patient who is awake, alert, chioma and in no acute distress. Head/Face: Normocephalic, atraumatic. Eyes: Pupils equal round and reactive to light, extra-ocular motions intact. Lids and lashes normal. Conjunctiva and sclera are non-icteric and not injected. Cornea within normal limits. Periorbital areas with no swelling, redness, or edema. ENT: Nares patent. No nasal discharge, no septal abnormalities noted. Tympanic membranes are normal and external auditory canals are clear. Oropharynx with no redness, swelling, or masses, exudates, or evidence of obstruction, uvula midline. Mucous membranes moist. Neck: Trachea midline, no thyromegaly or masses palpated, and no cervical lymphadenopathy. Supple, full range of motion without nuchal rigidity, or vertebral point tenderness. No Meningismus. Chest/axilla: Normal chest wall appearance and motion. Nontender with no deformity. No lesions are appreciated. Cardiovascular: Regular rate and rhythm with a normal S1 and S2. No gallops, murmurs, or rubs. Normal PMI, no JVD. No pulse deficits. Respiratory: Lungs have equal breath sounds bilaterally, clear to auscultation and percussion. No rales, rhonchi or wheezes noted. No increased work of breathing, no retractions or nasal flaring. Abdomen/GI: Soft, non-tender, with normal bowel sounds. No distension or tympany. No guarding or rebound. No evidence of tenderness throughout. Skin: Warm, dry with normal turgor. Normal color with no rashes, no lesions, and no evidence of cellulitis. MS/ Extremity: Pulses equal, no cyanosis. Neurovascular intact. Full, normal range of motion., bilateral aka Neuro: Awake and alert, GCS 15, oriented to person, place, time, and situation. Cranial nerves II-XII grossly intact. Motor strength 5/5 in all extremities. Sensory grossly intact. Cerebellar exam normal. Normal gait. Psych: Awake, alert, with orientation to person, place and time. Behavior, mood, and affect are within normal limits. Vital Signs: 13:47 BP 129 / 76; Pulse 84; Resp 18; Pulse Ox 100% on R/A; ld1 MDM: 13:21 Medical Screening Exam initiated [facility] 13:43 Data reviewed: vital signs, nurses notes. Consideration of Admission/Observation chioma Escalation of care including admission/observation considered. I considered the following discharge prescriptions or medication management in the emergency department Medications were administered in the Emergency Department. See MAR. Test considered but Not performed: Labs: no labs. Care significantly affected by the following chronic conditions: none. Administered Medications: No medications were administered Disposition Summary: 09/04/24 13:45 Discharge Ordered Notes: Location: Home [facility] Problem: new chioma Symptoms: have improved chioma Condition: Stable chioma Diagnosis - Pediculosis, unspecified chioma Followup: [facility] - With: Private Physician - When: 2 - 3 days - Reason: Recheck today's complaints, Continuance of care, Re-evaluation by your physician Discharge Instructions: - Discharge Summary Sheet [facility] - Lice, Adult chioma Forms: - Medication Reconciliation Form [facility] - Antibiotic Education [facility] - Prescription Opioid Use [facility] - Patient Portal Instructions [facility] - Leadership Thank You Letter [facility] Prescriptions: - RID Complete Lice Steptoe Kit 4-0.33-0.5 % Topical Kit - apply 1 package TOPICAL route per package directions SHAMPOO: apply to dry chioma hair/affected area(s); wash all off after 10 min; SPRAY: use on non-washable items; 30 gram; Refills: 0, Product Selection Permitted Signatures: Maynor Cristobal MD MD cha Sims, Lauren, RN RN ld1
--- NOTE | 2024-09-04 14:17 | ER ---
Nurse's Notes [facility] Name: Radha Maguire Age: 39 yrs Sex: Female : 1985 Arrival Date: 09/04/2024 Time: 12:53 Bed IW5 Private MD: Diagnosis: Pediculosis, unspecified Presentation: 09/04 13:47 Chief complaint: Patient states: Exposure to LICE. Coronavirus screen: At this time, ld1 the client does not indicate any symptoms associated with coronavirus-19. Ebola Screen: No symptoms or risks identified at this time. Initial Sepsis Screen: Does the patient meet any 2 criteria? No. Patient's initial sepsis screen is negative. Does the patient have a suspected source of infection? No. Patient's initial sepsis screen is negative. Risk Assessment: Do you want to hurt yourself or someone else? Patient reports no desire to harm self or others. Onset of symptoms was September 04, 2024. 13:47 Method Of Arrival: Ambulatory ld1 13:47 Acuity: PEPE 4 ld1 Triage Assessment: 13:48 General: Appears in no apparent distress. comfortable, Behavior is calm, cooperative, ld1 appropriate for age. Pain: Denies pain. Cardiovascular: Capillary refill < 3 seconds Patient's skin is warm and dry. Respiratory: Airway is patent Respiratory effort is even, unlabored. Historical: - Allergies: 13:48 No Known Allergies; ld1 - PMHx: 13:48 Hepatitis C; HSV (Tonsillectomy); ld1 - PSHx: 13:48 left arm; Tonsillectomy; ld1 - Immunization history:: Adult Immunizations up to date. - Infectious Disease History:: Denies. - Family history:: not pertinent. - Social history:: Smoking status: Patient denies any tobacco usage or history of. Screenin:[address] [facility] ED Fall Risk Assessment (Adult) History of falling in the last 3 months, ld1 including since admission No falls in past 3 months (0 pts) Confusion or Disorientation No (0 pts) Intoxicated or Sedated No (0 pts) Impaired Gait No (0 pts) Mobility Assist Device Used No (0 pt) Altered Elimination No (0 pt) Score/Fall Risk Level 0 - 2 = Low Risk. Abuse screen: Denies threats or abuse. Denies injuries from another. Nutritional screening: No deficits noted. Tuberculosis screening: No symptoms or risk factors identified. Assessment: 13:49 Reassessment: See triage assessment Evaluated by ERP. ld1 Vital Signs: 13:47 BP 129 / 76; Pulse 84; Resp 18; Pulse Ox 100% on R/A; ld1 ED Course: 13:09 Patient arrived in ED. im 13:21 Maynor Cristobal MD is Attending Physician. [facility] 13:48 Triage completed. ld1 13:48 Arm band placed on right wrist. ld1 13:49 Patient has correct armband on for positive identification. Placed in gown. Bed in low ld1 position. Call light in reach. Pulse ox on. NIBP on. 13:49 No provider procedures requiring assistance completed. Patient did not have IV access ld1 during this emergency room visit. Administered Medications: No medications were administered Medication: 13:49 VIS not applicable for this client. ld1 Outcome: 13:45 Discharge ordered by . [facility] 14:16 Discharged to home ambulatory, ld1 14:16 Condition: stable 14:16 Discharge instructions given to patient, Instructed on discharge instructions, follow up and referral plans. medication usage, Demonstrated understanding of instructions, follow-up care, medications, Prescriptions given X 2, 14:17 Patient left the ED. ld1 Signatures: Maynor Cristobal MD MD cha Sims, Lauren RN RN ld1 Kaylyn Prakash
[2024-09-04 14:57] VITALS: BP 129/76; O2SAT 100
== END 2024-09-04 14:17 | disposition home or self-care (01) ==
LOC: ER 12:53
DX: B85.2 Pediculosis, unspecified (principal)
CPT/HCPCS: 99283